=== PATIENT | female | born 1990 | race Two or more races ===

== ENCOUNTER 2024-07-21 14:04 | Outpatient (AMB) | payer MEDICAID, SELFPAY ==
--- NOTE | 2024-07-21 14:37 | PD.ORTHCLVIS ---
Vital signs 07/21/24 14:38 Height 1.63 m Height Method Stated Weight 69.003 kg Weight Measurement Method Standing Scale BMI 26.1 BP 96/67 Blood Pressure Source Automatic Cuff Blood Pressure Location Left Upper Arm Position Sitting Respiration 19 Pulse 80 Pulse Source Monitor Temp 98.3 F Temp Source Temporal Artery Scan Pulse Oximetry (%) 95 Oxygen Delivery Method Room Air Med/Allergies Allergies & Medications Allergies No Known Allergies Allergy (Verified 07/21/24 14:38) Medication Reconciliation cyclobenzaprine 10 mg tablet 10 mg PO HS PRN muscle spasm #10 tabs 12/08/21 [Rx Confirmed 07/21/24] ibuprofen 600 mg tablet 600 mg PO TID PRN pain #30 tabs 12/08/21 [Rx Confirmed 07/21/24] meloxicam 7.5 mg tablet 7.5 mg PO QDAY #45 tabs 07/21/24 [Rx] semaglutide (weight loss) 0.25 mg/0.5 mL subcutaneous pen injector (Wegovy) 0.25 mg subcut QWEEK 07/21/24 [History Confirmed 07/21/24] Exam Exam Patient is in no acute distress and is cooperative with the examination today. Breathing is nonlabored. Patient has a normal mood and affect. The patient has a gait that is nonantalgic Bilateral extremities were evaluated and demonstrates sensation intact to light touch. Palpable pedal pulses are present. No significant edema is present. Bilateral hips were examined. The patient has no pain with log roll of the hips. Internal rotation to 30 degrees and external rotation to 30 degrees is painless. Negative FADIR. Left knee was examined today. The left knee is in reasonable alignment. Range of motion from 0-120 degrees. Knee is stable to varus and valgus as well as AP translation with <5mm. Patient has a negative McMurrays. There is no pain with patellofemoral compression and no crepitus noted. The knee is nontender to palpation. The right knee was also examined. The right knee is in neutral alignment. Range of motion from 0-120 degrees. Knee is stable to varus and valgus as well as AP translation with <5mm. Patient has a negative McMurrays. There is no pain with patellofemoral compression and no crepitus noted. The knee is Tender to palpation diffusely Assessment and Plan Problem List (1) Pain in right knee: Status: Acute Plan: Patient is a 34yo female with right knee painand a normal MRI.We will order a rheumatological workup. We will see her back onceher rheumatoid labs and repeat xrays are performed. We will consider an injection at the nect visit. Office Procedures GNS Level of Care Nursing/Assessment Patient Status: Initial/New Patient Nursing Assessment/Reassesment: Medication Reconciliation, Update PMH in EMR and Vital Signs Coordination of Care: Complex Care and Chronic Disease 1-5, Education Complex Pt/Fam, Consent,records obtained, informed consent, 1 Ins Authorization, Lab and Imaging orders, Results/Orders obtained and Staff clarify orders New Patient Charge New Patient Point Assignment: 1124 New Patient Point Charge: PATENT LEATHER SORTER Level 4 ([id number]) MA Intake Visit Data Collection New Patient or Established: New Patient (never been to [facility]) Reason for Visit:: R KNEE EFFUSION Seen by Clinical Staff ONLY (RN/MA): No Attending Radiologist Required: No PCP or OBGYN visit in last 3 months: Yes Hx Now: No Do You Feel Safe at Home: Yes Authorities Contacted: N/A Questionairres Past Medical History Past Medical History Have you ever been diagnosed with any of the following: Cardiology Problems Congestive Heart Failure: No Respiratory Problems Chronic Obstructive Pulmonary Disease (COPD): No Asthma: No Genital/Urinary Problems Renal Disease: No Endocrine Problems Diabetes Mellitus Type 1: No Diabetes Mellitus Type 2: No Blood Problems Sickle Cell Disease: No Subjective Visit Visit for: new patient and knee (RIGHT) Immunization / Flu Flu Vaccine in the Last 12 Months: No Flu Vaccine Exclusion Criteria: Refused by Patient History of Present Illness Chief complaint: Right knee pain Date of injury / onset of symptoms: 07/2018 Kat is a 34-year-old female with right knee pain for over 5 years. The pain is significant and is really bothering her. She has tried weight loss and has lost quite a bit of weight. She has not had any injections but has tried physical therapy. She has tried anti-inflammatories previously Personal History Occupation: NONE Hobbies: NONE Pain Pain level (0-10): 8 Pain duration: WITH MOVEMENT Pain location: inside (medial) Pain quality: sharp, dull and aching Pain timing: night, increases with activity and stairs Associated signs & symptoms: stiffness Ambulatory data Ambulatory device: none Treatments Improvement with previous injections: No Number of Physical Therapy sessions: 12 Improvement with PT: No Improvement with NSAIDS: no Review of Systems Review of Systems: All systems negative unless otherwise noted in HPI.
[2024-07-21 14:38] VITALS: BP 96/67; PULSE 80; RESP 19; TEMP 36.8; O2SAT 95; BMI 26.1
== END 2024-07-21 15:03 | disposition home or self-care (01) ==
LOC: HODSRG 14:04
PROVIDERS: PCP Physician Assistant; Referring Provider Physician Assistant; Supervising Provider Orthopaedic Surgery Adult Reconstructive Orthopaedic Surgery; Visit Provider Orthopaedic Surgery Adult Reconstructive Orthopaedic Surgery
DX: M25.561 Pain in right knee (principal)
CPT/HCPCS: 99204; G0463